=== PATIENT | female | born 1990 | race Caucasian/White ===

== ENCOUNTER 2018-11-04 21:39 | Inpatient (IN) | payer MEDICARE, OTHER ==
[2018-11-04 21:51] VITALS: BMI 31.0
--- NOTE | 2018-11-04 21:52 | PDOC ---
Rapid Medical Evaluation Time Seen by Provider: 11/04/18 21:46 Medical Evaluation: 11/04/18 21:47 I have performed a brief in-person evaluation of this patient. The patient presents with a chief complaint of: R breast abscess/cellulitis x 1 week, getting worse. Seen at [facility] in [place] 3-4 days ago and started on abx (does not remember name but might be a penicillin, taking meds once a day currently). States condition worse. No f/c. Denies pmhx. Not currently breast feeding Pertinent physical exam findings: Fluctuant induration w/ surrounding cellulitis to lateral aspect pf R breast involving areola I have ordered the following: labs The patient will proceed to the ED for further evaluation. 11/04/18 21:52 Discharge Disposition - Diagnosis Breast abscess - Referrals - Patient Instructions - Post Discharge Activity
[2018-11-04] MEDS ORDERED: ACETAMINOPHEN 325 MG TABLET (FP) PO ONE (22:48)
[2018-11-04] MEDS ORDERED: VANCOMYCIN HCL 1,250 MG in DEXTROSE 5%-WATER - 250 ML IVPB ONE (22:53)
[2018-11-04] MEDS ORDERED: PIPERACILLIN/TAZOB 3.375 GM 3.375 GM in DEXTROSE 5%-WATER - 50 ML IVPB ONE (22:54)
[2018-11-04] MEDS ORDERED: CEFEPIME HCL/D5W 1 GM/50 ML BAG IVPB ONE (22:57)
[2018-11-04] MEDS ORDERED: ACETAMINOPHEN 325 MG TABLET (FP) ONE (22:59)
[2018-11-04 23:13] LABS: BASO % 0.7 % (0-2.0); EOS % 0.7 % (0-4.5); HEMATOCRIT 46.2 % (32.4-45.2); HEMOGLOBIN 15.5 GM/dL (10.7-15.3); LYMPH % 16.6 % (8-40); MCH 29.4 pg (25.7-33.7); MCHC 33.4 g/dl (32.0-36.0); MEAN CELL VOLUME 87.8 fl (80-96); MEAN PLT VOLUME 7.6 fl (7.5-11.1); MONO % 6.1 % (3.8-10.2); NEUT % 75.9 % (42.8-82.8); PLATELET COUNT 324 K/MM3 (134-434); RBC 5.26 M/mm3 (3.60-5.2); WHITE BLOOD COUNT 14.4 K/mm3 (4.0-10.0)
--- NOTE | 2018-11-04 23:21 | PDOC ---
History of Present Illness - General Chief Complaint: Wound Stated Complaint: SWELLING RT SIDE BREAST Time Seen by Provider: 11/04/18 21:46 History Source: Patient, Family (Cousin present at bedside.) Exam Limitations: No Limitations - History of Present Illness Initial Comments: HPI: 27 y/o female presenting to [facility] ER complaining of worsening pain and redness to right breast for the past 4 days. Start as a small lump without discoloration. Was diagnosed with mastitis and started on an antibiotic (she thinks Augmentin but cannot confirm) at another emergency department. Reports good medication compliance. Area of tenderness became larger and she then developed overlying redness. Denies observing discharge from the nipple or any other area on the breast. Is not actively . No h/o of similar. Denies fevers, chills, or diaphoresis. PCP: None Medical Hx: - Pt denies past medical history. Denies prescription medications. Surgical Hx: - S/p pilonidal cyst I&D - S/p ovarian cystectomy Review of Systems: In addition to that documented in the HPI above, the additional ROS was obtained : Constitutional: Denies fevers, chills, or diaphoresis Head: Denies vision changes ENMT: Denies sore throat CV: Denies chest pain Resp: Denies SOB GI: Denies vomiting or diarrhea : Denies painful urination MSK: Denies recent trauma Skin: Denies new rashes Neuro: Denies new numbness or tingling or weakness Endocrine: Denies polyuria Heme: Denies bleeding or bruising Physical Examination: Constitutional: Well-developed, well-nourished adult female in no acute distress or obvious discomfort. Obese body habitus. Found sitting upright on edge of hospital [employer]NA[employer] table. Alert and oriented x4. Answered all questions appropriately and completely. Speech was non-labored, non-pressured. Cardiovascular / Chest: Regular rate and regular rhythm. No murmur, rubs, clicks , or gallops. Peripheral pulses: radial pulses full. Respiratory: Breathing unlabored. Equal chest rise and fall. Clear to auscultation bilaterally. No stridor, no wheezing, no rhonchi. Female Breast: Area of exquisite tenderness with erythema and possible underlying fluctuance on the lateral aspect of the right breast. No nipple dimpling or fluid expressed. No weeping or purulence. No axillary lymphadenopathy. Scribe chaperoned exam. Neuro: Alert and oriented. Moving all four extremities spontaneously. Skin: [place], warm, and dry. Psych: Affect: appropriate. Mood: normal. MDM: *Reviewed vital signs, nursing notes, and prior visit documentation (if available). 27 y/o female presenting for worsening pain and redness to lateral aspect of right breast. S/p 4 days of PO antibiotics. No systemic infectious signs or symptoms. Afebrile. Vitals unremarkable for hypotension or tachycardia. Physical exam as described above. Suspect likely breast abscess. Low suspicion for mastitis versus peau d'orange. Will further evaluate with ultrasound. CBC remarkable for mild leukocytosis. H/H elevated. Suspect secondary to dehydration. Ordered LR IVF. Ordered Vancomycin and Cefepime for broad spectrum antibiotic coverage including MRSA coverage. Initial CMP and T/S hemolyzed. Reordered. Large breast abscess noted on ultrasound per ED wet read. Radiology report pending. Telephone discussion with Dr. Arora, surgeon visitor services information assistant. Verbally appraised of the pts HPI, ED course, and current plan of management. Will evaluate the pt in the morning. Pt made NPO at midnight. Discussed imaging and laboratory results with pt. Answered all questions. Pt expressed verbal understanding and agreement with plan to admit to the hospital for further surgical evaluation. Pt signed out to resident Dr. Nicole after she was verbally appraised of the pt s HPI, current ED course, and plan of management. Will f/u on pending chemistry and [facility] ultrasound report. Anticipate admission. Jayce Diallo M.D., PGY2 Emergency Medicine Resident Past History - Past Medical History Allergies/Adverse Reactions: Allergies Allergy/AdvReac Type Severity Reaction Status Date / Time No Known Allergies Allergy Verified 11/04/18 21:51 - Suicide/Smoking/Psychosocial Hx Smoking History: Current every day smoker Number of Cigarettes Smoked Daily: 5 Information on smoking cessation initiated: No Hx Alcohol Use: No Drug/Substance Use Hx: No *Physical Exam - Vital Signs Last Vital Signs Temp Pulse Resp BP Pulse Ox 98.4 F 92 H 19 124/65 98 11/04/18 21:48 11/04/18 21:48 11/04/18 21:48 11/04/18 21:48 11/04/18 21:48 ED Treatment Course - LABORATORY CBC & Chemistry Diagram: 11/04/18 23:00 11/04/18 23:00 - ADDITIONAL ORDERS Additional order review: 11/04/18 23:00 RBC 5.26 H MCV 87.8 MCHC 33.4 RDW 13.0 MPV 7.6 Neutrophils % 75.9 Lymphocytes % 16.6 Monocytes % 6.1 Eosinophils % 0.7 Basophils % 0.7 - RADIOLOGY Radiology Studies Ordered: Category Date Time Status BREAST US RIGHT NO B [US] Stat Ultrasound 11/04/18 22:47 Ordered - Medications Given in the ED: ED Medications Discontinued Medications Generic Name Dose Route Start Last Admin Trade Name Freq PRN Reason Stop Dose Admin Acetaminophen 650 mg 11/04/18 22:48 11/04/18 23:00 Tylenol - PO 11/04/18 22:49 650 mg ONCE ONE Administration *DC/Admit/Observation/Transfer Diagnosis at time of Disposition: Breast abscess - Referrals - Patient Instructions - Post Discharge Activity
--- NOTE | 2018-11-04 23:29 | PDOC ---
Documentation entered by Fabian Pichardo SCRIBE, acting as scribe for Dimitry Loyd MD. Dimitry Loyd MD: This documentation has been prepared by the Marino dos santos Elijah, SCRIBE, under my direction and personally reviewed by me in its entirety. I confirm that the documentation accurately reflects all work, treatment, procedures, and medical decision making performed by me. Attending Attestation - Resident Resident Name: Jayce Diallo - ED Attending Attestation I have performed the following: I have examined & evaluated the patient, The case was reviewed & discussed with the resident, I agree w/resident's findings & plan, Exceptions are as noted - HPI HPI: 11/04/18 23:29 27-year-old female patient with past medical history obesity presents with right breast cellulitis and abscess. The patient reported several days ago of developing erythema and pain along the right breast that has progressively worsened. Patient denies any fevers or chills. Several days ago, the patient had visited another hospital and was given a prescription of antibiotics which she has taken but the symptoms worsen. - Physicial Exam PE: 11/04/18 23:34 GENERAL: Awake, alert, and fully oriented, in no acute distress HEAD: No signs of trauma EYES: EOMI, sclera anicteric, conjunctiva clear ENT: Auricles normal inspection, hearing grossly normal, nares patent,Moist mucosa NECK: Normal ROM, supple, BREAST: Right breast with significant erythema approximately 12 x 12 cm overlying near right areola. Central area just lateral to areola with fluctuance but no drainage. tender to palpation. EXTREMITIES: Normal range of motion, no edema. No clubbing or cyanosis. No cords, erythema, or tenderness NEUROLOGICAL: Cranial nerves II through XII grossly intact. Normal speech, normal gait SKIN: Warm, Dry, normal turgor, no rashes or lesions noted. - Medical Decision Making 11/04/18 23:35 Vital Signs Temp Pulse Resp BP Pulse Ox 98.4 F 92 H 19 124/65 98 11/04/18 21:48 11/04/18 21:48 11/04/18 21:48 11/04/18 21:48 11/04/18 21:48 Patient's physical exam findings are concerning for right-sided breast abscess. We'll need to initiate IV antibiotics including vancomycin and cefepime. Consult surgery for rest incision and drainage likely an operating room. Admit the patient to the hospital. 11/05/18 00:19 Dr. Arora consulted for the case and will be systems management consultant.
[2018-11-04] MEDS ORDERED: LACTATED RINGERS SOLUTION 1,000 ML/1,000 ML INFUS.BAG IV SCH (23:45)
[2018-11-05] MEDS ORDERED: LACTATED RINGERS SOLUTION 1000 ML INFUS.BAG IV ONE
--- NOTE | 2018-11-05 00:14 | PDOC ---
*Physical Exam - Vital Signs Last Vital Signs Temp Pulse Resp BP Pulse Ox 98.4 F 92 H 19 124/65 98 11/04/18 21:48 11/04/18 21:48 11/04/18 21:48 11/04/18 21:48 11/04/18 21:48 - Physical Exam Comments: 11/05/18 00:09 Patient's care is endorsed to me by Dr. Diallo at the end of his shift. 27YOF without PMH who p/w large breast abscess worsening x4 days, states she has been taking is as prescribed (thinks it is Augmentin), was seen recently at outside hospital and diagnosed with mastitis. Now pending [place] read on CT and lab results (first set hemolyzed). Dr. Arora has been contacted and is seeing the patient in the AM (NPO after midnight). Patient will be admitted to [facility]. ED Treatment Course - LABORATORY CBC & Chemistry Diagram: 11/04/18 23:00 11/05/18 00:35 - ADDITIONAL ORDERS Additional order review: Laboratory Results 11/04/18 11/04/18 11/04/18 23:00 23:00 23:00 PTT (Actin FS) 37.8 H Sodium Cancelled Potassium Cancelled Chloride Cancelled Carbon Dioxide Cancelled Anion Gap Cancelled BUN Cancelled Creatinine Cancelled Est GFR (CKD-EPI)AfAm Cancelled Est GFR (CKD-EPI)NonAf Cancelled Random Glucose Cancelled Calcium Cancelled Total Bilirubin Cancelled AST Cancelled ALT Cancelled Alkaline Phosphatase Cancelled Total Protein Cancelled Albumin Cancelled Anti-A Titer Cancelled Blood Type Cancelled Antibody Screen Cancelled 11/04/18 23:00 RBC 5.26 H MCV 87.8 MCHC 33.4 RDW 13.0 MPV 7.6 Neutrophils % 75.9 Lymphocytes % 16.6 Monocytes % 6.1 Eosinophils % 0.7 Basophils % 0.7 - Medications Given in the ED: ED Medications Discontinued Medications Generic Name Dose Route Start Last Admin Trade Name Freq PRN Reason Stop Dose Admin Acetaminophen 650 mg 11/04/18 22:48 11/04/18 23:00 Tylenol - PO 11/04/18 22:49 650 mg ONCE ONE Administration Medical Decision Making - Medical Decision Making Laboratory Tests 11/04/18 11/04/18 11/04/18 23:00 23:00 23:00 WBC 14.4 H RBC 5.26 H Hgb 15.5 H Hct 46.2 H MCV 87.8 MCH 29.4 MCHC 33.4 RDW 13.0 Plt Count 324 MPV 7.6 Absolute Neuts (auto) 10.9 H Neutrophils % 75.9 Lymphocytes % 16.6 Monocytes % 6.1 Eosinophils % 0.7 Basophils % 0.7 Nucleated RBC % 0 PTT (Actin FS) 37.8 H Sodium Cancelled Potassium Cancelled Chloride Cancelled Carbon Dioxide Cancelled Anion Gap Cancelled BUN Cancelled Creatinine Cancelled Est GFR (CKD-EPI)AfAm Cancelled Est GFR (CKD-EPI)NonAf Cancelled Random Glucose Cancelled Calcium Cancelled Total Bilirubin Cancelled AST Cancelled ALT Cancelled Alkaline Phosphatase Cancelled Total Protein Cancelled Albumin Cancelled Serum , Qual Anti-A Titer Blood Type Antibody Screen 11/04/18 11/05/18 11/05/18 23:00 00:35 00:35 WBC RBC Hgb Hct MCV MCH MCHC RDW Plt Count MPV Absolute Neuts (auto) Neutrophils % Lymphocytes % Monocytes % Eosinophils % Basophils % Nucleated RBC % PTT (Actin FS) Sodium 141 Potassium 3.8 Chloride 107 Carbon Dioxide 26 Anion Gap 8 BUN 7.1 Creatinine 0.8 Est GFR (CKD-EPI)AfAm 118.76 Est GFR (CKD-EPI)NonAf 102.47 Random Glucose 108 H Calcium 8.7 Total Bilirubin 0.5 AST 32 ALT 70 H Alkaline Phosphatase 115 Total Protein 7.0 Albumin 3.6 Serum , Qual Negative Anti-A Titer Cancelled Blood Type Cancelled Antibody Screen Cancelled 11/05/18 00:35 WBC RBC Hgb Hct MCV MCH MCHC RDW Plt Count MPV Absolute Neuts (auto) Neutrophils % Lymphocytes % Monocytes % Eosinophils % Basophils % Nucleated RBC % PTT (Actin FS) Sodium Potassium Chloride Carbon Dioxide Anion Gap BUN Creatinine Est GFR (CKD-EPI)AfAm Est GFR (CKD-EPI)NonAf Random Glucose Calcium Total Bilirubin AST ALT Alkaline Phosphatase Total Protein Albumin Serum , Qual Anti-A Titer Blood Type A POSITIVE Antibody Screen Negative 11/05/18 01:51 The Pt is unsafe for discharge at this time. They require further hospital observation, workup, and treatment. Microblog sent to [facility] for admission. Blank Decision to Admit order is placed per ED protocol. 11/05/18 02:49 Jayce Diallo has spoken already with Deepa Martinez. Decision to Admit order corrected with Dr. Villalpando's name when inpatient team arrives. *DC/Admit/Observation/Transfer Diagnosis at time of Disposition: Breast abscess - Discharge Dispostion Condition at time of disposition: Guarded Decision to Admit order: Yes - Referrals - Patient Instructions - Post Discharge Activity
[2018-11-05] MEDS ORDERED: CEFEPIME 1 GM/100 ML BAG IVPB ONE (00:18)
[2018-11-05] MEDS ORDERED: VANCOMYCIN 1 GRAM (PRE-DOCKED) 1,000 MG/250 ML BAG IVPB ONE (00:18)
[2018-11-05 01:29] LABS: ALBUMIN 3.6 g/dl (3.4-5.0); BILIRUBIN,TOTAL 0.5 mg/dL (0.2-1); BLOOD UREA NITROGEN 7.1 mg/dL (7-18); CALCIUM 8.7 mg/dL (8.5-10.1); CREATININE 0.8 mg/dL (0.55-1.3); POTASSIUM 3.8 mmol/L (3.5-5.1)
--- NOTE | 2018-11-05 02:19 | PN ---
Teaching Attending Note Name of Resident: Chuck Villeda ATTENDING PHYSICIAN STATEMENT I saw and evaluated the patient. I reviewed the resident's note and discussed the case with the resident. I agree with the resident's findings and plan as documented. SUBJECTIVE: Patient is a 27 year old woman with PMH of Ovarian cystectomy, Pilonidal cyst (s /p drainage) and Tobacco use who presents to the ER complaining of worsening pain and redness to right breast for the past 4 days. Start as a small lump without discoloration. Was diagnosed with mastitis and started on an antibiotic (she thinks Augmentin but cannot confirm) at [facility]. Reports good medication compliance. Area of tenderness became larger and she then developed overlying redness. Denies observing discharge from the nipple or any other area on the breast. Is not actively breast feeding. LMP was October 17, 2018. Patient has 2 children ages two and three years and neither was breast fed. Denies any bites to the breast, aggressive manipulation or injection into the breast. Denies fevers, chills, or diaphoresis. The surgeon Dr. Arora has been contacted and will see the patient in the morning. OBJECTIVE: Alert Vital Signs Period Temp Pulse Resp BP Sys/Koo Pulse Ox Last 24 Hr 98.4 F 92 19 124/65 98 HEENT: No Jaundice, eye redness or discharge, PERRLA, EOMI. Normocephalic, atraumatic. External ears are normal and hearing is grossly intact. No nasal discharge. Neck: Supple, nontender. No palpable adenopathy or thyromegaly. No JVD Chest: Good effort. Clear to auscultation and percussion. Right breast with significant erythema overlying near right areola. Central area just lateral to areola with fluctuance but no drainage - tender to palpation. Heart: Regular. No S3, rub or murmur Abdomen: Not distended, soft, nontender and no HSM. No rebound or guarding. Normal bowel sounds. Ext: Peripheral pulses intact. No leg edema. Skin: Warm and dry. No petechiae, rash or ecchymosis. Neuro: Alert. Oriented x3. CN 2-12 grossly intact. Sensation grossly intact in all four extremities and DTR are symmetric. Psych: Appropriate mood and affect. Good insight. Current Medications Generic Name Dose Route Start Last Admin Trade Name Freq PRN Reason Stop Dose Admin Lactated Ringer's 1,000 ml in 1,000 mls @ 125 mls/hr 11/04/18 23:45 Lactated Ringers Solution IV ASDIR AMEENA Abnormal Lab Results 11/04/18 11/04/18 11/05/18 23:00 23:00 00:35 WBC 14.4 H RBC 5.26 H Hgb 15.5 H Hct 46.2 H Absolute Neuts (auto) 10.9 H PTT (Actin FS) 37.8 H Random Glucose 108 H ALT 70 H ASSESSMENT AND PLAN: 1. Right breast abscess - No obvious risk factor besides obesity. Official report of breast sonogram pending. Will treat with IV vancomycin pending culture of I&D aspirate. Surgery consulted. Will keep her NPO for possible surgery in the morning and continue IV Ringers lactate. Erythrocytosis likely due to tobacco use and dehydration. Use IV morphine 2 mg q 4 hours PRN for pain control and provide bowel regimen. EKG, Urinalysis and CXR pending. 2. Tobacco Use Counseled on risks associated with tobacco use. We will provide patient all the necessary assistance to facilitate smoking cessation and prescribe Nicotine patch. 3. Obesity Counseled on the risks associated with obesity. Will provide patient all the necessary assistance, counseling and positive reinforcement to facilitate weight loss. Consult financial reserve clerk. 4. DVT prophylaxis - SCD. Switch to Lovenox 40 mg SQ q 24 hours after surgery. 5. Advance directives - Full code
[2018-11-05] MEDS ORDERED: morphine CARPU-JECT 2 MG/1 ML DISP.SYRIN IVPUSH PRN (03:19)
[2018-11-05] MEDS ORDERED: ACETAMINOPHEN 325 MG TABLET (FP) PO PRN (03:19)
[2018-11-05] MEDS: LACTATED RINGERS SOLUTION 1,000 ML IV SCH ×3 (03:30→16:05)
[2018-11-05] MEDS ORDERED: MORPHINE SULFATE 2 MG/ML VIAL ONE ×2 (03:37→07:39)
--- NOTE | 2018-11-05 03:41 | HP ---
CHIEF COMPLAINT: breast pain PCP: HISTORY OF PRESENT ILLNESS: This is a 27 y/o F with no PMH who presented to the ED c/o of right breast pain X1 wk. 1 wk ago it was only a lump but 3 days later she had 10/10 pressure like pain that would not improve with tylenol. She states she went to [facility] on 10/30 and they treated her with ? augmentin for mastitis but unclear if she is taking it or if it is in fact augmentin she was given. She denies any bloody discharge or clear discharge until US done in ER caused some clear d/c. ER course was notable for: (1)US unofficial report of large breast abscess. (2)EKG, serum test negative (3)B.CShawn's, Recent Travel: none PAST MEDICAL HISTORY: none PAST SURGICAL HISTORY: s/p pilonidal cyst removal, s/p ovarian cystectomy. LMP- 10/17 Social History: Smokin-3 cigs/day Alcohol:none Drugs: none Family History: none Allergies: none No Known Allergies Allergy (Verified 11/04/18 21:51) HOME MEDICATIONS: none REVIEW OF SYSTEMS none except as in HPI PHYSICAL EXAMINATION Vital Signs - 24 hr 11/04/18 21:48 Temperature 98.4 F Pulse Rate 92 H Respiratory 19 Rate Blood Pressure 124/65 O2 Sat by Pulse 98 Oximetry (%) GENERAL: Awake, alert, and fully oriented, in some acute distress. HEAD: Normal with no signs of trauma. NECK: supple LUNGS: Breath sounds equal, clear to auscultation bilaterally. No wheezes, and no crackles. No accessory muscle use. HEART: Regular rate and rhythm, normal S1 and S2 without murmur, rub or gallop. ABDOMEN: Soft, nontender, not distended, no guarding, no rebound, no masses. MUSCULOSKELETAL: No bony deformities or tenderness. UPPER EXTREMITIES: warm, well-perfused. No peripheral edema. LOWER EXTREMITIES: warm, well-perfused, No peripheral edema. NEUROLOGICAL: Cranial nerves II-XII intact. Normal speech. Normal gait. PSYCHIATRIC: Cooperative. Good eye contact. Appropriate mood and affect. SKIN: Warm, dry, no rashes or lesions noted. Laboratory Results - last 24 hr 11/04/18 11/04/18 11/04/18 23:00 23:00 23:00 WBC 14.4 H RBC 5.26 H Hgb 15.5 H Hct 46.2 H MCV 87.8 MCH 29.4 MCHC 33.4 RDW 13.0 Plt Count 324 MPV 7.6 Absolute Neuts (auto) 10.9 H Neutrophils % 75.9 Lymphocytes % 16.6 Monocytes % 6.1 Eosinophils % 0.7 Basophils % 0.7 Nucleated RBC % 0 PTT (Actin FS) 37.8 H Sodium Cancelled Potassium Cancelled Chloride Cancelled Carbon Dioxide Cancelled Anion Gap Cancelled BUN Cancelled Creatinine Cancelled Est GFR (CKD-EPI)AfAm Cancelled Est GFR (CKD-EPI)NonAf Cancelled Random Glucose Cancelled Calcium Cancelled Total Bilirubin Cancelled AST Cancelled ALT Cancelled Alkaline Phosphatase Cancelled Total Protein Cancelled Albumin Cancelled Serum , Qual Anti-A Titer Blood Type Antibody Screen 11/04/18 11/05/18 11/05/18 23:00 00:35 00:35 WBC RBC Hgb Hct MCV MCH MCHC RDW Plt Count MPV Absolute Neuts (auto) Neutrophils % Lymphocytes % Monocytes % Eosinophils % Basophils % Nucleated RBC % PTT (Actin FS) Sodium 141 Potassium 3.8 Chloride 107 Carbon Dioxide 26 Anion Gap 8 BUN 7.1 Creatinine 0.8 Est GFR (CKD-EPI)AfAm 118.76 Est GFR (CKD-EPI)NonAf 102.47 Random Glucose 108 H Calcium 8.7 Total Bilirubin 0.5 AST 32 ALT 70 H Alkaline Phosphatase 115 Total Protein 7.0 Albumin 3.6 Serum , Qual Negative Anti-A Titer Cancelled Blood Type Cancelled Antibody Screen Cancelled 11/05/18 00:35 WBC RBC Hgb Hct MCV MCH MCHC RDW Plt Count MPV Absolute Neuts (auto) Neutrophils % Lymphocytes % Monocytes % Eosinophils % Basophils % Nucleated RBC % PTT (Actin FS) Sodium Potassium Chloride Carbon Dioxide Anion Gap BUN Creatinine Est GFR (CKD-EPI)AfAm Est GFR (CKD-EPI)NonAf Random Glucose Calcium Total Bilirubin AST ALT Alkaline Phosphatase Total Protein Albumin Serum , Qual Anti-A Titer Blood Type A POSITIVE Antibody Screen Negative ASSESSMENT/PLAN: This is a 27 y/o w no PMH who presented with right sided breast pain X 1 wk. #Breast abscess - Dr. Arora has been consulted and agreed to see the patient tm - I&D management per surgery - US shows abscess unofficially. - IV 2mg morphine q4h pain scale 6-10 - tylenol for pain scale 3-5 - ID consulted- Dr Castro - Pt started on vanco empirically to Rx vanco - A1C to assess potential risk factor for this abscess. - F/U with prom burn off operator doctor as o/p for potential rf's for breast abscess and for potential w/u for PCOS given pts hirsutism, obese body habitus, acne, and hx of ovarian cystectomy. #Acute leukocytosis - pt afebrile, no signs of sepsis - B.C. pending - UA pending - most likely due to this localized infection. - placed on vanco for abscess - will continue to monitor #Elevated H&H - most likely dehydration - cant r/o smoking hx as a possible cause - ip counsel patient on smoking cessation. - will continue to monitor. #obesity - ip counsel patient on better dietary practices, low NA, low carb, low fat diets. FEN: 75ml LR monitor lytes -npo after midnight DVT PPX: considering surgery tm SCD should suffice. Advanced directive- full code Visit type - Emergency Visit Emergency Visit: Yes ED Registration Date: 11/05/18 Care time: The patient presented to the Emergency Department on the above date and was hospitalized for further evaluation of their emergent condition. - New Patient This patient is new to me today: Yes Date on this admission: 11/05/18 - Critical Care Critical Care patient: No ATTENDING PHYSICIAN STATEMENT I saw and evaluated the patient. I reviewed the resident's note and discussed the case with the resident. I agree with the resident's findings and plan as documented. SUBJECTIVE: OBJECTIVE: ASSESSMENT AND PLAN:
[2018-11-05] MEDS ORDERED: MORPHINE SULFATE 2 MG/ML VIAL IVPUSH PRN ×3 (03:54→16:05)
[2018-11-05 08:06] LABS: BASO % 0.4 % (0-2.0); EOS % 1.4 % (0-4.5); HEMATOCRIT 37.3 % (32.4-45.2); HEMOGLOBIN 12.4 GM/dL (10.7-15.3); MCH 29.2 pg (25.7-33.7); MCHC 33.2 g/dl (32.0-36.0); MEAN CELL VOLUME 88.2 fl (80-96); MEAN PLT VOLUME 7.8 fl (7.5-11.1); NEUT % 60.2 % (42.8-82.8); PLATELET COUNT 244 K/MM3 (134-434); RBC 4.23 M/mm3 (3.60-5.2); RDW 13.1 % (11.6-15.6); WHITE BLOOD COUNT 11.4 K/mm3 (4.0-10.0)
[2018-11-05 08:22] LABS: BILIRUBIN,TOTAL 0.4 mg/dL (0.2-1); BLOOD UREA NITROGEN 5.8 mg/dL (7-18); CALCIUM 8.4 mg/dL (8.5-10.1); CREATININE 0.7 mg/dL (0.55-1.3); MAGNESIUM 2.1 mg/dL (1.8-2.4); POTASSIUM 3.9 mmol/L (3.5-5.1); TOT PROT 5.8 g/dl (6.4-8.2)
[2018-11-05] MEDS ORDERED: PIPERACILLIN/TAZOB 3.375 GM 3.375 GM/50 ML BAG IVPB ONE (09:34)
[2018-11-05 09:35] LABS: PH,URINE 6.5 (5.0-8.0); URINE APPEARANCE CLEAR; URINE BILIRUBIN NEGATIVE (NEGATIVE); URINE COLOR YELLOW; URINE GLUCOSE (UA) NEGATIVE (NEGATIVE); URINE KETONE NEGATIVE (NEGATIVE); URINE LEUK ESTERASE 1+ (NEGATIVE); URINE NITRITE NEGATIVE (NEGATIVE); URINE PROTEIN NEGATIVE (NEGATIVE); URINE UROBILINOGEN 0.2 mg/dL (0.2-1.0)
[2018-11-05] MEDS ORDERED: PIPERACILLIN/TAZOB 3.375 GM 3.375 GM in DEXTROSE 5%-WATER - 50 ML IVPB SCH ×2 (10:00→18:00)
[2018-11-05 10:33] LABS: EPI CELLS 1.9 /HPF (0-5/HPF); URINE BACTERIA 12.5 /hpf (NEGATIVE); URINE RBC 1.7 /hpf (0-4); URINE WBC 16.4 /hpf (0-5)
[2018-11-05] MEDS ORDERED: LACTATED RINGERS SOLUTION 1,000 ML IV SCH ×3 (11:53→16:00)
--- NOTE | 2018-11-05 12:02 | CONSULT ---
Consult Consult Specialty:: General Surgery Referred by:: Dario Diallo Reason for Consultation:: right breast abscess - History of Present Illness Chief Complaint: right breast swelling, redness, pain History of Present Illness: 27yo obese F smoker began having right breast pain with small lump about a week a half ago, and went to [facility], where she was given antibiotic Rx and sent home. She thinks it was Augmentin bid, and she picked it up the next day and reports taking it, but the pain got worse, as did the lump, swelling and redness , and she came to ER yesterday. In ER, she was afebrile with wbc 14, somewhat dry by labs, and exam and US of right breast were consistent with likely underlying abscess (~4cm across). She was given fluids, pain meds, and started on IV antibiotics including Vanco. Surgery was asked to assess. She is seen and examined in ER holding, initially sleeping, but easily woken. She reports having eaten nothing yesterday at all, last po was day before. Denies F/C, N/V. The pain was starting to return. After the ultrasound, there was a little bit of fluid staining on her gown at the site, but she had noted no drainage previously. She has not had breast problems or procedures before, but she does have a pierced (bar) left nipple, and used to have one in her right side, but she states she removed it months ago, long before this started. She is not or ; has a 2yo and 3yo. - History Source History Provided By: Patient Limitations to Obtaining History: No Limitations - Past Medical History Reproductive: Yes: Other (h/o left ovarian cyst or torsion) ...: No Dermatology: Yes: Other (h/o pilonidal cyst) - Past Surgical History Additional Surgical History: laparoscopy for left ovarian cyst or torsion 2013; pilonidal cyst surgery - Alcohol/Substance Use Hx Alcohol Use: Yes (occasional) History of Substance Use: reports: None - Smoking History Smoking history: Current every day smoker Have you smoked in the past 12 months: Yes Aproximately how many cigarettes per day: 5 - Social History Usual Living Arrangement: With Child (2 and 3 yo) ADL: Independent Occupation: horticultural manager at [employer] Medications - Allergies Allergies/Adverse Reactions: Allergies Allergy/AdvReac Type Severity Reaction Status Date / Time No Known Allergies Allergy Verified 11/04/18 21:51 - Home Medications Home Medications: Ambulatory Orders NK [No Known Home Medication] 11/05/18 Family Disease History - Family Disease History Family History: Denies Review of Systems - Review of Systems Constitutional: reports: Loss of Appetite (didn't eat yesterday). denies: Chills, Fever Eyes: denies: Blurred Vision, Recent Change in Vision HENT: denies: Difficult Swallowing, Throat Pain Neck: denies: Swollen Glands, Tenderness Cardiovascular: denies: Chest Pain, Palpitations Respiratory: denies: Cough, SOB Gastrointestinal: denies: Abdominal Pain, Constipation, Diarrhea, Nausea, Vomiting Genitourinary: denies: Burning, Dysuria Breasts: reports: Lumps, Pain, Skin Changes, Other (see hpi) Musculoskeletal: denies: Back Pain, Joint Pain, Muscle Pain Integumentary: reports: Erythema (right breast). denies: Rash Neurological: denies: Dizziness, Headache, Unsteady Gait Psychiatric: denies: Anxiety, Depression Physical Exam Vital Signs: Vital Signs Temperature 98.5 F 11/05/18 06:05 Pulse Rate 70 11/05/18 08:35 Respiratory Rate 18 11/05/18 08:35 Blood Pressure 107/61 11/05/18 08:35 O2 Sat by Pulse Oximetry (%) 98 11/05/18 08:35 Constitutional: Yes: No Distress, Calm, Obese Eyes: Yes: Conjunctiva Clear, EOM Intact HENT: Yes: Atraumatic, Normocephalic Neck: Yes: Supple, Trachea Midline Cardiovascular: Yes: Regular Rate and Rhythm Respiratory: Yes: Regular, CTA Bilaterally Gastrointestinal: Yes: Normal Bowel Sounds, Soft, Abdomen, Obese. No: Tenderness ...Rectal Exam: Yes: Deferred Renal/: No: CVA Tenderness - Left, CVA Tenderness - Right Breast(s): Yes: Right, Skin Changes (at 8-10:00, ~3cm fluctuant area at edge of areola with erythema extending laterally onto breast over ~8-10cm, very tender, areolar area with small bit of dried serosang drainage, central slightly ulcerated skin patch, deeper red, no active drainage) Musculoskeletal: No: Joint Stiffness, Joint Swelling Extremities: No: Cool, Cyanosis Edema: No Peripheral Pulses WNL: Yes Integumentary: Yes: Body Piercing (left nipple bar; tongue; under lower lip; old /healed right nipple site (removed months prior per pt)), Erythema (right breast , as above), Tattoos. No: Jaundice, Rash Wound/Incision: Yes: Open to air, Reddened (right breast), Other (see above) Neurological: Yes: Alert, Oriented Psychiatric: Yes: Alert, Oriented Labs: CBC, BMP 11/05/18 06:32 11/05/18 06:32 CMP Sodium 142 mmol/L (136-145) 11/05/18 06:32 Potassium 3.9 mmol/L (3.5-5.1) 11/05/18 06:32 Chloride 109 mmol/L (98-107) H 11/05/18 06:32 Carbon Dioxide 28 mmol/L (21-32) 11/05/18 06:32 Anion Gap 6 MMOL/L (8-16) L 11/05/18 06:32 BUN 5.8 mg/dL (7-18) L 11/05/18 06:32 Creatinine 0.7 mg/dL (0.55-1.3) 11/05/18 06:32 Est GFR (CKD-EPI)AfAm 139.57 11/05/18 06:32 Est GFR (CKD-EPI)NonAf 120.42 11/05/18 06:32 Random Glucose 75 mg/dL (74-106) 11/05/18 06:32 Hemoglobin A1c % 5.3 % (4.2-6.3) 11/05/18 06:32 Calcium 8.4 mg/dL (8.5-10.1) L 11/05/18 06:32 Phosphorus 4.0 mg/dL (2.5-4.9) 11/05/18 06:32 Magnesium 2.1 mg/dL (1.8-2.4) 11/05/18 06:32 Total Bilirubin 0.4 mg/dL (0.2-1) 11/05/18 06:32 AST 22 U/L (15-37) 11/05/18 06:32 ALT 52 U/L (13-61) 11/05/18 06:32 Alkaline Phosphatase 92 U/L (45-117) 11/05/18 06:32 Total Protein 5.8 g/dl (6.4-8.2) L 11/05/18 06:32 Albumin 3.0 g/dl (3.4-5.0) L 11/05/18 06:32 Serum , Qual Negative 11/05/18 00:35 Urine Test Results Urine Color Yellow 11/05/18 08:00 Urine Appearance Clear 11/05/18 08:00 Urine pH 6.5 (5.0-8.0) 11/05/18 08:00 Ur Specific [place] 1.004 (1.010-1.035) L 11/05/18 08:00 Urine Protein Negative (NEGATIVE) 11/05/18 08:00 Urine Glucose (UA) Negative (NEGATIVE) 11/05/18 08:00 Urine Ketones Negative (NEGATIVE) 11/05/18 08:00 Urine Blood Negative (NEGATIVE) 11/05/18 08:00 Urine Nitrite Negative (NEGATIVE) 11/05/18 08:00 Urine Bilirubin Negative (NEGATIVE) 11/05/18 08:00 Ur Leukocyte Esterase 1+ (NEGATIVE) H 11/05/18 08:00 wbc down from 14 Imaging - Results Ultrasound: Report Reviewed, Image Reviewed (images reviewed - moderate to large complex fluid collection right breast consistent with likely abscess) Problem List - Problems (1) Abscess of right breast Assessment/Plan: admitted to medicine NPO/IVF for OR IV antibiotics started including MRSA coverage - ID consulted to continue pain meds prn - nonnarcotics first line DVT prophylaxis Discussed with patient risks, benefits and alternatives of incision and drainage of right breast abscess, including but not limited to bleeding, infection, recurrence; alternatives include antibiotics with delayed or no surgery - risks of this include likely failure of nonoperative therapy, progression of infection, sepsis, need for more extensive procedure. Patient desires to proceed with operation - will take to OR urgently for above. Informed consent signed for same. discussed with Dr. Gutierrez Code(s): N61.1 - ABSCESS OF THE BREAST AND NIPPLE (2) Breast pain, right Code(s): N64.4 - MASTODYNIA (3) Tobacco dependence due to cigarettes Code(s): F17.210 - NICOTINE DEPENDENCE, CIGARETTES, UNCOMPLICATED (4) Other obesity due to excess calories Code(s): E66.09 - OTHER OBESITY DUE TO EXCESS CALORIES (5) BMI 31.0-31.9,adult Code(s): Z68.31 - BODY MASS INDEX (BMI) 31.0-31.9, ADULT
[2018-11-05] MEDS ORDERED: ACETAMINOPHEN 1000 MG/100 ML VIAL (NON FORMULARY) IVPB ONE (12:15)
[2018-11-05] MEDS ORDERED: ACETAMINOPHEN INJECTION 100 ML IVPB ONE (12:45)
[2018-11-05] MEDS ORDERED: VANCOMYCIN 1 GM in D5W (PRE-DOCKED) 1,000 MG/250 ML IVPB SCH (14:00)
[2018-11-05] MEDS ORDERED: VANCOMYCIN 1 GM in D5W (PRE-DOCKED) 1,000 MG/250 ML IVPB ONE ×3 (14:00→16:05)
[2018-11-05] MEDS ORDERED: PROPOFOL 20 ML ONE (14:40)
[2018-11-05] MEDS ORDERED: MIDAZOLAM HCL 2 MG/2 ML SINGLE DOSE VIAL ONE (14:40)
--- NOTE | 2018-11-05 14:58 | HOSP ---
Subjective - Review of Symptoms Events since last encounter: Patient is comfortable , presented with right breast abscess. Patient is being evaluated by the surgeon. Going to OR for drainage. On IV antibiotics. Vital Signs Temperature 98.4 F 11/05/18 13:14 Pulse Rate 71 11/05/18 13:14 Respiratory Rate 18 11/05/18 13:14 Blood Pressure 108/63 11/05/18 13:14 O2 Sat by Pulse Oximetry (%) 96 11/05/18 13:14 CBCD WBC 11.4 K/mm3 (4.0-10.0) H 11/05/18 06:32 RBC 4.23 M/mm3 (3.60-5.2) 11/05/18 06:32 Hgb 12.4 GM/dL (10.7-15.3) 11/05/18 06:32 Hct 37.3 % (32.4-45.2) D 11/05/18 06:32 MCV 88.2 fl (80-96) 11/05/18 06:32 MCHC 33.2 g/dl (32.0-36.0) 11/05/18 06:32 RDW 13.1 % (11.6-15.6) 11/05/18 06:32 Plt Count 244 K/MM3 (134-434) D 11/05/18 06:32 MPV 7.8 fl (7.5-11.1) 11/05/18 06:32 CMP Sodium 142 mmol/L (136-145) 11/05/18 06:32 Potassium 3.9 mmol/L (3.5-5.1) 11/05/18 06:32 Chloride 109 mmol/L (98-107) H 11/05/18 06:32 Carbon Dioxide 28 mmol/L (21-32) 11/05/18 06:32 Anion Gap 6 MMOL/L (8-16) L 11/05/18 06:32 BUN 5.8 mg/dL (7-18) L 11/05/18 06:32 Creatinine 0.7 mg/dL (0.55-1.3) 11/05/18 06:32 Random Glucose 75 mg/dL (74-106) 11/05/18 06:32 Calcium 8.4 mg/dL (8.5-10.1) L 07/20/19 06:32 Total Bilirubin 0.4 mg/dL (0.2-1) 11/05/18 06:32 AST 22 U/L (15-37) 11/05/18 06:32 ALT 52 U/L (13-61) 11/05/18 06:32 Alkaline Phosphatase 92 U/L (45-117) 11/05/18 06:32 Total Protein 5.8 g/dl (6.4-8.2) L 11/05/18 06:32 Albumin 3.0 g/dl (3.4-5.0) L 11/05/18 06:32 Current Medications Generic Name Dose Route Start Last Admin Trade Name Freq PRN Reason Stop Dose Admin Acetaminophen 650 mg 11/05/18 18:00 Tylenol - PO Q6H AMEENA Piperacillin Sod/Tazobactam 50 mls @ 100 mls/hr 11/05/18 10:00 11/05/18 09:40 Sod 3.375 gm/ Dextrose IVPB 11/06/18 09:59 100 mls/hr Q8H-IV AMEENA Administration Protocol Lactated Ringer's 1,000 mls @ 125 mls/hr 11/05/18 11:53 11/05/18 12:45 Lactated Ringers Solution IV 125 mls/hr ASDIR AMEENA Administration Morphine Sulfate 2 mg 11/05/18 03:54 11/05/18 07:42 Morphine Sulfate IVPUSH 2 mg Q4H PRN Administration PAIN LEVEL 7 - 10 Vancomycin HCl 1,000 mg 11/05/18 14:00 Vancomycin (Pre-Docked) IVPB Q12H AMEENA Protocol Physical Examination Vital Signs: Vital Signs Temperature 98.4 F 11/05/18 13:14 Pulse Rate 71 11/05/18 13:14 Respiratory Rate 18 11/05/18 13:14 Blood Pressure 108/63 11/05/18 13:14 O2 Sat by Pulse Oximetry (%) 96 11/05/18 13:14 Labs: CBC, BMP 11/05/18 06:32 11/05/18 06:32
[2018-11-05] MEDS ORDERED: DEXAMETHASONE SOD PHOSPHATE 4 MG/1 ML VIAL ONE (15:00)
[2018-11-05] MEDS ORDERED: KETOROLAC TROMETHAMINE 30 MG/1 ML VIAL ONE (15:23)
--- NOTE | 2018-11-05 15:43 | OP ---
Operative Note - Note: Operative Date: 11/05/18 Pre-Operative Diagnosis: right breast abscess Operation: incision and drainage of right breast abscess (deep) Findings: subareolar abscess cavity, ~30ml pus evacuated and cultured, Alphonso drain left through counterincisions, cavity packed with 1" iodoform Post-Operative Diagnosis: Same as Pre-op (subareolar abscess right breast) Surgeon: Von Arora Anesthesiologist/BLADDER BLOWER: Mariela Bruno Anesthesia: General (via LMA) Specimens Removed: culture swab to micro Estimated Blood Loss (mls): 5 Drains & Tubes with Location: [place] drain right breast through counterincisions, sewn to itself Fluid Volume Replaced (mls): 500 (crystalloid) Operative Report Dictated: Yes
[2018-11-05] MEDS ORDERED: oxyCODONE HCL 5 MG TABLET PO PRN ×2 (15:45→16:05)
[2018-11-05] MEDS ORDERED: ONDANSETRON 4 MG/2 ML VIAL IVPUSH PRN ×2 (15:50→16:05)
[2018-11-05] MEDS ORDERED: DEXTROSE 5%-WATER - 50 ML IVPB ONE (17:30)
[2018-11-05] MEDS ORDERED: PIPERACILLIN/TAZOBACTAM 3.375 GM VIAL IVPB ONE (17:30)
[2018-11-05] MEDS: PIPERACILLIN/TAZOB 3.375 GM 3.375 GM in DEXTROSE 5%-WATER - 50 ML IVPB SCH (17:42)
[2018-11-05] MEDS: ACETAMINOPHEN 325 MG TABLET (FP) PO SCH (17:46)
[2018-11-05] MEDS ORDERED: ACETAMINOPHEN 325 MG TABLET (FP) PO SCH ×2 (18:00)
[2018-11-05] MEDS ORDERED: IBUPROFEN 600 MG TABLET (FP) PO SCH (21:00)
[2018-11-05] MEDS: IBUPROFEN 600 MG TABLET (FP) PO SCH (22:12)
[2018-11-06] MEDS: IBUPROFEN 600 MG TABLET (FP) PO SCH ×4 (00:04→17:18)
[2018-11-06] MEDS: ACETAMINOPHEN 325 MG TABLET (FP) PO SCH ×4 (00:05→17:18)
[2018-11-06] MEDS ORDERED: PIPERACILLIN/TAZOBACTAM 3.375 GM VIAL IVPB ONE ×3 (01:40→17:10)
[2018-11-06] MEDS ORDERED: DEXTROSE 5%-WATER - 50 ML IVPB ONE ×3 (01:40→17:10)
[2018-11-06] MEDS: PIPERACILLIN/TAZOB 3.375 GM 3.375 GM in DEXTROSE 5%-WATER - 50 ML IVPB SCH ×2 (01:46→10:37)
[2018-11-06] MEDS ORDERED: VANCOMYCIN 1 GRAM (PRE-DOCKED) 1,000 MG/250 ML BAG IVPB SCH ×2 (02:00)
[2018-11-06] MEDS ORDERED: VANCOMYCIN 1 GM in D5W (PRE-DOCKED) 1,000 MG/250 ML IVPB SCH (02:00)
[2018-11-06 09:21] LABS: BASO % 0.2 % (0-2.0); EOS % 0.1 % (0-4.5); HEMATOCRIT 36.8 % (32.4-45.2); HEMOGLOBIN 12.3 GM/dL (10.7-15.3); LYMPH % 14.8 % (8-40); MCH 29.3 pg (25.7-33.7); MCHC 33.3 g/dl (32.0-36.0); MEAN PLT VOLUME 8.4 fl (7.5-11.1); NEUT % 78.9 % (42.8-82.8); PLATELET COUNT 243 K/MM3 (134-434); RBC 4.18 M/mm3 (3.60-5.2); RDW 12.8 % (11.6-15.6); WHITE BLOOD COUNT 12.6 K/mm3 (4.0-10.0)
--- NOTE | 2018-11-06 10:40 | PN ---
Progress Note (short form) - Note Progress Note: Anesthesia postop note POD#1. S/P I&D right breast abscess under GA. Pat seen and examined. VSS. No apparent post anesthesia complications.
--- NOTE | 2018-11-06 14:08 | PN ---
Progress Note (short form) - Note Progress Note: ID CONSULT DICTATED S/P I&D R BREAST ABSCESS R MASTITIS AWAIT C/S CONTINUE VANCO/ ZOSYN POST OP DRSG IN PLACE- LEFT INTACT
[2018-11-06 14:53] VITALS: BP 119/66; PULSE 55; TEMP 97.9
--- NOTE | 2018-11-06 14:55 | PN ---
Teaching Attending Note Name of Resident: Brianne Boothe ATTENDING PHYSICIAN STATEMENT I saw and evaluated the patient. I reviewed the resident's note and discussed the case with the resident. I agree with the resident's findings and plan as documented. SUBJECTIVE: Patient is feeling better with no acute distress. OBJECTIVE: Vital Signs Temperature 97.9 F 11/06/18 14:52 Pulse Rate 55 L 11/06/18 14:52 Respiratory Rate 20 11/06/18 09:00 Blood Pressure 119/66 11/06/18 14:52 O2 Sat by Pulse Oximetry (%) 95 11/05/18 21:00 GENERAL: The patient is awake, alert, and fully oriented, in no acute distress. HEAD: Normal with no signs of trauma. EYES: PERRLA, EOMI, conjunctiva clear. ENT: moist mucous membranes. NECK: Trachea midline, full range of motion, supple. LUNGS: Breath sounds equal, clear to auscultation bilaterally. HEART: Regular rate and rhythm, S1, S2 without murmur, rub or gallop. CHEST: Dressing on right breast clean, dry, intact ABDOMEN: Soft, nontender, nondistended, normoactive bowel sounds. EXTREMITIES: 2+ pulses, warm, well-perfused, no edema. NEUROLOGICAL: Cranial nerves II through XII grossly intact. Normal speech, gait not observed. PSYCH: Normal mood, normal affect. SKIN: Warm, dry, normal turgor, no rashes or lesions noted CBCD WBC 12.6 K/mm3 (4.0-10.0) H 11/06/18 07:30 RBC 4.18 M/mm3 (3.60-5.2) 11/06/18 07:30 Hgb 12.3 GM/dL (10.7-15.3) 11/06/18 07:30 Hct 36.8 % (32.4-45.2) 11/06/18 07:30 MCV 88.0 fl (80-96) 11/06/18 07:30 MCHC 33.3 g/dl (32.0-36.0) 11/06/18 07:30 RDW 12.8 % (11.6-15.6) 11/06/18 07:30 Plt Count 243 K/MM3 (134-434) 11/06/18 07:30 MPV 8.4 fl (7.5-11.1) 11/06/18 07:30 CMP Sodium 142 mmol/L (136-145) 11/05/18 06:32 Potassium 3.9 mmol/L (3.5-5.1) 11/05/18 06:32 Chloride 109 mmol/L (98-107) H 11/05/18 06:32 Carbon Dioxide 28 mmol/L (21-32) 11/05/18 06:32 Anion Gap 6 MMOL/L (8-16) L 11/05/18 06:32 BUN 5.8 mg/dL (7-18) L 11/05/18 06:32 Creatinine 0.7 mg/dL (0.55-1.3) 11/05/18 06:32 Random Glucose 75 mg/dL (74-106) 11/05/18 06:32 Calcium 8.4 mg/dL (8.5-10.1) L 11/05/18 06:32 Total Bilirubin 0.4 mg/dL (0.2-1) 11/05/18 06:32 AST 22 U/L (15-37) 11/05/18 06:32 ALT 52 U/L (13-61) 11/05/18 06:32 Alkaline Phosphatase 92 U/L (45-117) 11/05/18 06:32 Total Protein 5.8 g/dl (6.4-8.2) L 11/05/18 06:32 Albumin 3.0 g/dl (3.4-5.0) L 11/05/18 06:32 Current Medications Generic Name Dose Route Start Last Admin Trade Name Diane PRN Reason Stop Dose Admin Acetaminophen 650 mg 11/05/18 18:00 11/06/18 11:49 Tylenol - PO 650 mg Q6HPO AMEENA Administration Lactated Ringer's 1,000 mls @ 75 mls/hr 11/05/18 16:05 11/05/18 16:05 Lactated Ringers Solution IV 0 mls ASDIR AMEENA Administration Piperacillin Sod/Tazobactam 50 mls @ 100 mls/hr 11/06/18 18:00 Sod 3.375 gm/ Dextrose IVPB Q8H-IV AMEENA Protocol Vancomycin HCl 1,000 mg/ 250 mls @ 166.667 mls/hr 11/07/18 02:00 11/06/18 14: 46 Dextrose IVPB 166.667 mls/hr Q12H AMEENA Administration Protocol Ibuprofen 600 mg 11/05/18 21:00 11/06/18 11:50 Motrin - PO 600 mg Q6HPO AMEENA Administration Morphine Sulfate 2 mg 11/05/18 16:05 Morphine Sulfate IVPUSH Q4H PRN Pain Level 8 - 10 BREAKTHROUGH Ondansetron HCl 4 mg 11/05/18 16:05 Zofran Injection IVPUSH Q6H PRN NAUSEA AND/OR VOMITING Oxycodone HCl 5 mg 11/05/18 16:05 Roxicodone - PO Q6H PRN Pain Level 8 - 10 BREAKTHROUGH Home Medications Medication Instructions Recorded NK [No Known Home Medication] 11/05/18 ASSESSMENT AND PLAN: Patient is a 27 year old female with no significant past medical history presented with right sided breast abscess. #Acute Right Breast abscess s/p I&D by dr Arora on IV zosyn and vanco continue as per ID. follow the culture #Prophylaxis -Lovenox 40mg sq daily
[2018-11-06] MEDS: LACTATED RINGERS SOLUTION 1,000 ML IV SCH (16:30)
--- NOTE | 2018-11-06 16:48 | PN ---
Progress Note, Physician History of Present Illness: right breast abscess s/p I&D with rene drain placement seen and examined in bed using tylenol and ibuprofen, feeling better overall, pain less, breast softer tolerating diet Vanco/Zosyn per ID - Current Medication List Current Medications: Active Medications Acetaminophen (Tylenol -) 650 mg PO Q6HPO AMEENA Last Admin: 11/06/18 11:49 Dose: 650 mg Lactated Ringer's (Lactated Ringers Solution) 1,000 mls @ 75 mls/hr IV ASDIR AMEENA Last Admin: 11/06/18 16:30 Dose: 75 mls/hr Piperacillin Sod/Tazobactam (Sod 3.375 gm/ Dextrose) 50 mls @ 100 mls/hr IVPB Q8H-IV AMEENA; Protocol Vancomycin HCl 1,000 mg/ (Dextrose) 250 mls @ 166.667 mls/hr IVPB Q12H AMEENA; Protocol Last Admin: 11/06/18 14:46 Dose: 166.667 mls/hr Ibuprofen (Motrin -) 600 mg PO Q6HPO AMEENA Last Admin: 11/06/18 11:50 Dose: 600 mg Morphine Sulfate (Morphine Sulfate) 2 mg IVPUSH Q4H PRN PRN Reason: Pain Level 8 - 10 BREAKTHROUGH Last Admin: 11/06/18 16:25 Dose: 2 mg Ondansetron HCl (Zofran Injection) 4 mg IVPUSH Q6H PRN PRN Reason: NAUSEA AND/OR VOMITING Oxycodone HCl (Roxicodone -) 5 mg PO Q6H PRN PRN Reason: Pain Level 8 - 10 BREAKTHROUGH - Objective Vital Signs: Vital Signs Temperature 97.9 F 11/06/18 14:52 Pulse Rate 55 L 11/06/18 14:52 Respiratory Rate 20 11/06/18 09:00 Blood Pressure 119/66 11/06/18 14:52 O2 Sat by Pulse Oximetry (%) 95 11/05/18 21:00 Constitutional: Yes: No Distress, Calm, Obese Eyes: Yes: Conjunctiva Clear, EOM Intact HENT: Yes: Atraumatic, Normocephalic Gastrointestinal: Yes: Soft, Abdomen, Obese. No: Tenderness Breast(s): Yes: Right, Skin Changes (edema/erythema toward lateral side decreased but still mild/present; dressing intact, little yellow strikethrough only; less tender; see below) Extremities: No: Cool, Cyanosis Integumentary: Yes: Body Piercing, Incision (right breast, dressed), Tattoos. No: Jaundice, Rash Wound/Incision: Yes: Dressing Dry and Intact, Dressing Removed, Draining ( serosang on packing - all packing removed; no active drainage), Reddened (mild erythema periwound and at lateral side, much less tender), Unapproximated, Other (rene drain intact, incisions at 9:00 and 6:00; 9:00 opening with a bit more necrotic skin that is likely to slough, internal wound surface red, clean with some cautery artifact, no purulence). No: Bleeding Neurological: Yes: Alert, Oriented Labs: CBC, BMP 11/06/18 07:30 11/05/18 06:32 Microbiology 11/04/18 23:00 Blood Culture - Preliminary Blood - Peripheral Venous NO GROWTH OBTAINED AFTER 24 HOURS, INCUBATION TO CONTINUE FOR 4 DAYS. 11/04/18 23:00 Blood Culture - Preliminary Blood - Peripheral Venous NO GROWTH OBTAINED AFTER 24 HOURS, INCUBATION TO CONTINUE FOR 4 DAYS. wound GS and culture still pending called micro - it is plated but nothing to report yet Problem List - Problems (1) Abscess of right breast Assessment/Plan: admitted to medicine continue IV antibiotics per ID pain meds prn - nonnarcotics first line dressing replaced with gauze over wounds and nipple, tape to hold pt will need to keep the site covered daily instructions in d/c plan to f/u in 1-2 weeks in wound clinic with me pt reports she cannot find anyone to take her kids from their father tomorrow in the morning she is concerned about needing to leave to get them and not being able to stay Code(s): N61.1 - ABSCESS OF THE BREAST AND NIPPLE (2) Breast pain, right Code(s): N64.4 - MASTODYNIA (3) Tobacco dependence due to cigarettes Code(s): F17.210 - NICOTINE DEPENDENCE, CIGARETTES, UNCOMPLICATED (4) Other obesity due to excess calories Code(s): E66.09 - OTHER OBESITY DUE TO EXCESS CALORIES (5) BMI 31.0-31.9,adult Code(s): Z68.31 - BODY MASS INDEX (BMI) 31.0-31.9, ADULT
--- NOTE | 2018-11-06 16:49 | CONS ---
DATE OF CONSULTATION: DATE OF DICTATION: 11/06/2018 A 27-year-old previously-healthy female evaluated for right breast abscess. The patient reports developing right breast swelling and redness approximately 1 week prior to admission. She apparently was seen in the emergency room at [facility] in [place], [facility] 4 days prior to admission and was prescribed an antibiotic. She was unaware of the name of the antibiotic. She presented to [facility] ER with worsening right breast pain and swelling. She was seen in consultation by Surgery. Patient was taken to the operating room, where an incision and drainage was performed, 30 mL of pus was obtained. She was empirically treated with vancomycin and Zosyn. Cultures are pending. The patient reports significant improvement in the redness of the right breast. Past medical history negative. Patient denies history of diabetes mellitus or history of serious soft tissue infection requiring hospitalization. LABORATORY DATA: White count 12.6, hematocrit 36.8, platelets 243. Creatinine 0.7. Blood and wound cultures are pending. PHYSICAL EXAMINATION: General: She is awake and alert, in no acute distress, not acutely toxic appearing. Vital Signs: Temperature 98. Blood pressure 119/58. Pulse 59, regular. Respirations 20 per minute. Eyes: Sclerae anicteric. Heart Sounds: S1, S2. Lungs: Clear. Abdomen: Soft. Nontender. Postoperative dressing in place, right breast. IMPRESSION: 1. Postoperative day number 1 incision and drainage of right breast abscess. 2. Right mastitis. 3. Leukocytosis. Await culture results. Continue empiric vancomycin and Zosyn. Surgical followup. Thank you for the kind referral. DAMI MONTANO M.D. [id number]
--- NOTE | 2018-11-06 17:21 | PN ---
Physical Exam: SUBJECTIVE: Patient seen and examined at bedside this morning. No acute events overnight. Patient reports feeling well this morning. Denies any fever, chills, headache, dizziness, chest pain, SOB, abdominal pain, diarrhea, urinary symptoms. OBJECTIVE: Vital Signs Temperature 97.9 F 11/06/18 14:52 Pulse Rate 55 L 11/06/18 14:52 Respiratory Rate 20 11/06/18 09:00 Blood Pressure 119/66 11/06/18 14:52 O2 Sat by Pulse Oximetry (%) 95 11/05/18 21:00 GENERAL: The patient is awake, alert, and fully oriented, in no acute distress. HEAD: Normal with no signs of trauma. EYES: PERRLA, EOMI, conjunctiva clear. ENT: moist mucous membranes. NECK: Trachea midline, full range of motion, supple. LUNGS: Breath sounds equal, clear to auscultation bilaterally. HEART: Regular rate and rhythm, S1, S2 without murmur, rub or gallop. CHEST: Dressing on right breast clean, dry, intact ABDOMEN: Soft, nontender, nondistended, normoactive bowel sounds. EXTREMITIES: 2+ pulses, warm, well-perfused, no edema. NEUROLOGICAL: Cranial nerves II through XII grossly intact. Normal speech, gait not observed. PSYCH: Normal mood, normal affect. SKIN: Warm, dry, normal turgor, no rashes or lesions noted Laboratory Results - last 24 hr 11/06/18 07:30 WBC 12.6 H RBC 4.18 Hgb 12.3 Hct 36.8 MCV 88.0 MCH 29.3 MCHC 33.3 RDW 12.8 Plt Count 243 MPV 8.4 Absolute Neuts (auto) 9.9 H Neutrophils % 78.9 D Lymphocytes % 14.8 D Monocytes % 6.0 Eosinophils % 0.1 D Basophils % 0.2 Nucleated RBC % 0 Active Medications Generic Name Dose Route Start Last Admin Trade Name Freq PRN Reason Stop Dose Admin Acetaminophen 650 mg 11/05/18 18:00 11/06/18 11:49 Tylenol - PO 650 mg Q6HPO AMEENA Administration Lactated Ringer's 1,000 mls @ 75 mls/hr 11/05/18 16:05 11/06/18 16:30 Lactated Ringers Solution IV 75 mls/hr ASDIR AMEENA Administration Piperacillin Sod/Tazobactam 50 mls @ 100 mls/hr 11/06/18 18:00 Sod 3.375 gm/ Dextrose IVPB Q8H-IV AMEENA Protocol Vancomycin HCl 1,000 mg/ 250 mls @ 166.667 mls/hr 11/07/18 02:00 11/06/18 14: 46 Dextrose IVPB 166.667 mls/hr Q12H AMEENA Administration Protocol Ibuprofen 600 mg 11/05/18 21:00 11/06/18 11:50 Motrin - PO 600 mg Q6HPO AMEENA Administration Morphine Sulfate 2 mg 11/05/18 16:05 11/06/18 16:25 Morphine Sulfate IVPUSH 2 mg Q4H PRN Administration Pain Level 8 - 10 BREAKTHROUGH Ondansetron HCl 4 mg 11/05/18 16:05 Zofran Injection IVPUSH Q6H PRN NAUSEA AND/OR VOMITING Oxycodone HCl 5 mg 11/05/18 16:05 Roxicodone - PO Q6H PRN Pain Level 8 - 10 BREAKTHROUGH ASSESSMENT/PLAN: Patient is a 27 year old female with no significant past medical history presented with right sided breast abscess. #Right Breast abscess -POD 1: Incision and drainage of right breast abscess -Surgery (Dr. Arora) consulted. REcommendations appreciated. -Dressing replaced with gauze over wounds -Keep the site covered daily -To follow up in the wound clinic in 1-2 weeks. -GS/CS of wound pending -Continue Vancomycin and Zosyn -ID (Dr. Norris) consulted. Recommendations appreciated. #Leukocytosis, improving -afebrile, no signs of sepsis -wound cultures pending -blood cultures showed no growth -On Vanc and Zosyn -will continue to monitor #FEN -Not on any standing fluids -Electrolytes wnl, routine bmp monitoring -Regular diet #Prophylaxis -Lovenox 40mg sq daily #Disposition -full code -med surg Visit type - Emergency Visit Emergency Visit: Yes ED Registration Date: 11/05/18 Care time: The patient presented to the Emergency Department on the above date and was hospitalized for further evaluation of their emergent condition. - New Patient This patient is new to me today: Yes Date on this admission: 11/06/18 - Critical Care Critical Care patient: No ATTENDING PHYSICIAN STATEMENT I saw and evaluated the patient. I reviewed the resident's note and discussed the case with the resident. I agree with the resident's findings and plan as documented. SUBJECTIVE: OBJECTIVE: ASSESSMENT AND PLAN:
[2018-11-06] MEDS ORDERED: PIPERACILLIN/TAZOB 3.375 GM 3.375 GM in DEXTROSE 5%-WATER - 50 ML IVPB SCH (18:00)
[2018-11-07] MEDS: ACETAMINOPHEN 325 MG TABLET (FP) PO SCH (00:03)
[2018-11-07] MEDS: IBUPROFEN 600 MG TABLET (FP) PO SCH (00:03)
--- NOTE | 2018-11-07 00:43 | PN ---
Progress Note (short form) - Note Progress Note: Was paged about patient at 12:22 AM. 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 She is scheduled for antibiotic treatments and pending culture results. She was made aware of the risks of worsening infections, stoppage of antibiotic treatment, later admission to a hospital, and risk of . Patient acknowledged the risks but still wants to leave.
[2018-11-07] MEDS ORDERED: VANCOMYCIN 1,000 MG in DEXTROSE 5%-WATER - 250 ML IVPB SCH (02:00)
[2018-11-07] MEDS ORDERED: ENOXAPARIN NA (PORCINE) 40 MG/0.4 ML DISP.SYRIN SQ SCH (10:00)
--- NOTE | 2018-11-07 17:22 | DS ---
Physical Exam: SUBJECTIVE: Please see previous notes. Patient signed out AMA overnight. HOSPITAL COURSE: Date of Admission:11/05/18 Date of Discharge: 11/07/18 Patient is a 27 year old female with no significant past medical history presented with right sided breast abscess. Surgery and ID were consulted. Patient underwent incision and drainage of the right breast abscess and was started on IV Vancomycin and Zosyn. Wound cultures pending. 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 She refused her IV antibiotics and signed out AMA. Minutes to complete discharge: 35 Discharge Summary Reason For Visit: ABSCESS OF BREAST Condition: Stable - Instructions Diet, Activity, Other Instructions: Postoperative instructions: You had incision and drainage of a right breast abscess on 11/05/[address] Von Arora of [facility]. Activity: Resume your usual activities gradually; you may want to wear a comfortable bra for support. You may shower daily with the dressing OFF; just pat the incision areas dry. Soap and water will not hurt the wound; do not put anything else on it. You will need to keep it covered with gauze daily and as needed to manage the drainage from the wound. No bath or swimming until the skin incisions have fully healed. You may have your usual diet as tolerated. Pain: For pain, you may use and alternate Tylenol (acetaminophen) 1-2 pills and/ or ibuprofen 200 mg (1-3 pills) every 6 hours each as needed; this means that you can take one OR the other at 3-hour intervals. Do not take more than 4000 mg of acetaminophen in a day. Take medications as prescribed or indicated on the labeling. You will need to complete your antibiotics at home as prescribed - do NOT take the rest of what you had before coming to the hospital. Eat yogurt or take a probiotic daily while using the antibiotics. Follow-up: Call [phone] to make your postop appointment with Dr. Arora ( Wednesday in 1-2 weeks). Clinic is held in the [facility] on the fifth floor of [facility]. Call Dr. Arora's office at [phone] if you have: * increasing pain not responsive to pain medication * fever of 101F or higher * vomiting * unusual or increasing bleeding or drainage from wounds * increasing redness or swelling at wound sites Also, see your primary medical doctor within 1-2 weeks. Referrals: Von Arora MD [Staff Physician] - Disposition: AGAINST MEDICAL ADVICE - Home Medications Comprehensive Discharge Medication List: Ambulatory Orders NK [No Known Home Medication] 11/05/18 This patient is new to me today: Yes Date on this admission: 11/09/18 Emergency Visit: Yes ED Registration Date: 11/05/18 Care time: The patient presented to the Emergency Department on the above date and was hospitalized for further evaluation of their emergent condition. Critical Care patient: No - Discharge Referral Referred to [facility] Med P.C.: No ATTENDING PHYSICIAN STATEMENT I saw and evaluated the patient. I reviewed the resident's note and discussed the case with the resident. I agree with the resident's findings and plan as documented. SUBJECTIVE: OBJECTIVE: ASSESSMENT AND PLAN:
--- NOTE | 2018-12-12 18:54 | OP ---
DATE OF OPERATION: 11/05/2018 PREOPERATIVE DIAGNOSIS: Right breast abscess. POSTOPERATIVE DIAGNOSIS: Subareolar right breast abscess. PROCEDURE: Incision and drainage of right breast abscess (deep). SURGEON: Von Arora MD ANESTHESIA: General via LMA. ESTIMATED BLOOD LOSS: 5 mL. FLUIDS: 500 mL of crystalloid. DRAINS: [place] drain was left in the right breast through 2 counterincisions, which was sewn to itself. SPECIMEN: Cultures to microbiology on swab. FINDINGS: Subareolar abscess cavity, approximately 30 mL of pus evacuated and cultured. [place] drain left through counterincisions and the cavity packed with 1-inch Iodoform. DISPOSITION: Stable and awake to PACU. INDICATIONS FOR PROCEDURE: Patient is a 27-year-old obese female smoker who began having right breast pain with a small lump approximately a week and a half prior and had been to [facility] where she was given a prescription for antibiotics and sent home. She believes it was Augmentin and had picked it up the next day and started taking it, but the pain got worse, the lump got worse, the swelling and redness got worse, and she came into our ER yesterday with a white count of 14,000. Exam and ultrasound of right breast were consistent with an underlying abscess approximately 4 cm across. She was started on IV antibiotics including vancomycin and seen by surgery. She was also noted to have left breast piercing with a bar and none currently in the right, but she said she used to have one in the right side but had been removed months prior before this episode occurred. Discussion was had with the patient regarding risks, benefits, and alternatives of incision and drainage of the right breast abscess, including but not limited to bleeding, infection, and recurrence. Alternatives included antibiotics with delayed or no surgery, with attendant risks of likely failure of nonoperative therapy, progression of infection, sepsis, and need for more extensive procedure. Patient was agreeable to proceed with an operation. Informed consent was signed by her, and she is now brought urgently to the OR for this procedure. OPERATIVE TECHNIQUE: The patient was brought to the operating room, laid supine on the operating table. Sequential compression devices were applied to bilateral lower extremities. As appropriate antibiotics had already been started, these were continued through the perioperative period. After induction and insertion of an LMA by Anesthesia, her right breast was prepped and draped with Betadine in sterile fashion. The area of the abscess was palpated and noted to be fluctuant. There was a small necrotic area of skin noted just adjacent to the areolar border laterally, and this area was opened with a scalpel, with a small piece of that tissue excised as part of the incision to enter the abscess cavity. There was immediate evacuation of pus, which was cultured with a swab and sent to microbiology. The rest of the pus was evacuated using suction tip, and the cavity was then probed manually with a fingertip to identify the extent of the wound area. The cavity was noted to be primarily subareolar and not in fact lateral. There was approximately 30 mL of pus evacuated. A small counterincision was then made inferiorly again along the border of the areola. Hemostasis was achieved with electrocautery around the edges of these incisions as possible. The cavity was irrigated through with saline solution using a bulb syringe, and 3/8-inch [place] drain was used to pass through both counterincisions to maintain an opening of the wound cavity. It was sewn to itself with 2 separate nylon sutures to form a complete ring and trimmed. The cavity was packed with gauze temporarily for hemostasis and then packed with 1-inch Iodoform prior to dressing the area with 4 x 4 gauze and tape, taking care to cover the nipple such that the tape did not adhere to the nipple area. The patient was cleansed with Betadine as well, awakened by Anesthesia and returned to her stretcher. Count was correct at the end of the procedure. The patient was then returned to the recovery room in stable condition, having tolerated the procedure well. Von Arora M.D. [id number]
== END 2018-11-07 00:40 | disposition left against medical advice (07) | DRG 385 ==
LOC: JER 21:39 → JERBED 11-05 01:54 → J6S 11-05 13:39
PROVIDERS: ADMIT Internal Medicine; ATTEND Internal Medicine
PROC: 0H9T00Z Drainage of Right Breast with Drainage Device, Open Approach (ICD-10-PCS; principal; 2018-11-05 14:07)
DX: N61.1 Abscess of the breast and nipple (principal); E86.0 Dehydration; E66.9 Obesity, unspecified; Z68.31 Body mass index [BMI] 31.0-31.9, adult; F17.210 Nicotine dependence, cigarettes, uncomplicated; D75.1 Secondary polycythemia
CPT/HCPCS: 36415; 76641-TC-RT; 80053; 81003; 83036; 83735; 84100; 84703; 85025; 85730; 86850; 86900; 86901; 87040; 87070; 87076; 87205; 94760; 99284-25; J0131